=== PATIENT | male | born 1960 | race Caucasian/White ===

== ENCOUNTER → 2017-04-29 | Outpatient (CLI) | payer BC | LOC: BMCIMAGING 09:17 | PROVIDERS: ATTEND Physician Assistant | DX: M25.561 Pain in right knee (principal) ==

== ENCOUNTER 2017-05-12 15:45 | Observation (INO) | payer BC ==
[2017-05-12] MEDS ORDERED: ceFAZolin 2 GM/DEXTROSE 100 ML IV ONE ×2 (15:49→20:14)
[2017-05-12] MEDS ORDERED: TDAP ADULT 0.5 ML INJ (BOOSTRIX) IM ONE (15:59)
--- NOTE | 2017-05-12 16:02 | EDPHY ---
H & P Constitutional: Initial Vital Signs Heart Rate 67 05/12/17 16:00 Respiratory Rate 20 05/12/17 16:00 Blood Pressure 150/94 H 05/12/17 16:00 O2 Sat (%) 99 05/12/17 16:00 O2 Delivery Mode Nasal Cannula O2 (L/minute) 4 Allergies/Adverse Reactions: No Known Allergies Allergy (Verified 05/12/17 16:04) Home Medications: Medication Instructions Recorded Aspirin [Aspirin 325 mg (OTC)] 325 mg PO DAILY 04/18/13 Atorvastatin Calcium [Lipitor] 40 mg PO HS 04/18/13 Pharmacy Completed 04/18/13 04/18/13 Medical Decision Making - Diagnostics Imaging Results: Imaging Impressions Hand X-Ray 05/12/17 15:49 Impression: 1. Severely comminuted intraarticular open fracture through the base of the distal phalanx of the index finger. 2. Moderately comminuted open fracture of the head of the middle phalanx of the 4th finger, with probable intraarticular extension. Imaging: Discussed imaging studies w/ call centre supervisor Radiologist, I viewed and interpreted images myself ED Course/Re-evaluation: CHIEF COMPLAINT: Left finger amputations HISTORY OF PRESENT ILLNESS: The patient is a 57 y/o male who walked into the ED with his friend complaining of multiple left finger injuries secondary to accidentally cutting himself with a bandsaw 10 minutes prior to arrival. He did not lose consciousness and denies any other injuries. He arrived in a makeshift belt tourniquet that was replaced with a CAT upon arrival. He is not anticoagulated. REVIEW OF SYSTEMS: A 10 point review of systems was performed and is negative with the exception of the elements mentioned in the history of present illness. PHYSICAL EXAM: HR, BP, O2 Sat, RR. Temp noted General Appearance: Alert, talking appropriately, appears in pain. Head: Atraumatic without scalp tenderness or obvious injury Eyes: Pupils equal, round, reactive to light and accommodation, EOMI, no trauma , no injection. Ears: Clear bilaterally, no perforation, no hemotympanum Nose: Atraumatic, no rhinorrhea, no septal hematoma Neck: All NEXUS criteria are negative. The cervical spine is non-tender and there is no pain or neurologic deficits with active range of motion. Supple, no trauma, trachea midline. Cardiovascular: Heart is regular rate and rhythm without murmur. Left radial pulse intact. Poor capillary refill in distal left index and left ring finger. Otherwise good capillary refill all extremities. Chest: Atraumatic, equal bilateral breath sounds. Good oxygen saturations with normal minute ventilation. Chest is non-tender to palpation. Gastrointestinal: Soft, non-tender, non-distended. No rebound, guarding, or peritoneal signs. There is no evidence of external or internal trauma. Back: There is no thoracic or lumbar spine or paraspinal tenderness. Atraumatic. Left hand: Near complete amputation of index finger at DIP, laceration along dorsal aspect of middle finger, ring finger amputation just distal to PIP with small amount of soft tissue still attached, two <1cm lacerations to distal 5th finger, small laceration to distal tip of thumb with intact nail Extremities: Otherwise all extremities are non-tender to palpation without obvious deformity. There is full active range of motion of the joints. Neurological: The patient has normal DTRs and non-focal Cranial nerves, motor, sensory, and cerebellar exam Skin: No mejia or abrasions. PAST MEDICAL HISTORY: Denies PAST SURGICAL HISTORY: Denies SOCIAL HISTORY: Friend and at bedside. DIAGNOSTICS/PROCEDURES/CRITICAL CARE TIME: Left Hand x-ray: 1. Severely comminuted intraarticular open fracture through the base of the distal phalanx of the index finger. 2. Moderately comminuted open fracture of the head of the middle phalanx of the 4th finger, with probable intraarticular extension. DIFFERENTIAL DIAGNOSIS: The differential diagnosis for the patient's trauma included but was not limited to full and partial finger amputations, tendon and muscle injury, vascular injury, nerve injury, hemorrhage. MEDICAL DECISION MAKING: This is a healthy 57 y/o male who presents with significant injuries to his distal left ring finger and index finger from a bandsaw accident 10 minutes prior to arrival in the ED. His friend immediately placed a makeshift belt tourniquet and brought him to the ED POV. Immediate plan for hemorrhage control , pain management, imaging, and hand surgeon consult. 1545: Tourniquet placed by ED staff proximal to makeshift tourniquet. Sterile saline-soaked bandages applied to lacerations, ring cut off. 1gm IV Ancef ordered for open fracture. PA will apply digital blocks to affected fingers. 1552: Pressure cuff placed and tourniquet removed. Tetanus vaccination ordered. 1600: Cuff deflated without further hemorrhage. Digital block performed by [facility] Block to left index, left middle, and left ring fingers. 1609: Consulted with Dr. Noyola, hand surgeon. He will review films and plans to take patient to surgery. 1615: Reassessed patient and discussed plan. His pain is well controlled with local anesthesia. Patient's last PO intake was food at 11:30 and coffee at 13: 00 today. 1651: Consulted with Dr. Noyola in the ED. He will assess the patient in the trauma bay. - Data Points Medications Given: Discontinued Medications Diphtheria/Tetanus/Acell Pertussis (Boostrix) 0.5 ml IM .ONCE ONE Stop: 05/12/17 16:00 Last Admin: 05/12/17 16:05 Dose: 0.5 ml Cefazolin Sodium/Dextrose (Ancef 2 Gm (Premix)) 100 mls @ 200 mls/hr IV EDNOW ONE PRN Reason: Protocol Stop: 05/12/17 16:18 Last Admin: 05/12/17 15:55 Dose: 100 mls Departure - Departure Disposition: [facility] Inpatient Acute Clinical Impression: Open fracture of phalanx of finger of left hand Qualifiers: Encounter type: initial encounter Finger: ring finger Phalanx: middle Fracture alignment: displaced Qualified Code(s): S62.625B - Displaced fracture of middle phalanx of left ring finger, initial encounter for open fracture Finger laceration involving tendon Qualifiers: Encounter type: initial encounter Qualified Code(s): S61.219A - Laceration without foreign body of unspecified finger without damage to nail, initial encounter; S66.929A - Laceration of unspecified muscle, fascia and tendon at wrist and hand level, unspecified hand, initial encounter; S66.929A - Laceration of unspecified muscle, fascia and tendon at wrist and hand level, unspecified hand, initial encounter Laceration of multiple sites of left hand and fingers Qualifiers: Encounter type: initial encounter Qualified Code(s): S61.412A - Laceration without foreign body of left hand, initial encounter; S61.219A - Laceration without foreign body of unspecified finger without damage to nail, initial encounter; S61.219A - Laceration without foreign body of unspecified finger without damage to nail, initial encounter Condition: Good Referrals: Amari Kearney MD [Primary Care Provider] - As per Instructions Report Scribed for: Wm Ortega Report Scribed by: Shawna Jovel Date of Report: 05/12/17 Time of Report: 16:03
[2017-05-12] MEDS ORDERED: BUPIVACAINE 0.5% 30 ML SDV ONE (19:13)
[2017-05-12] MEDS ORDERED: BACITRACIN 50,000 UNITS/10 ML SYR IRR ONE ×2 (19:14→21:06)
--- NOTE | 2017-05-12 19:28 | PDCONSULT ---
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 Ortega CC: L hand tablesaw injury HPI: About 30 min prior to presentation the patient was using a tablesaw at home. The saw kicked and pulled his hand in, lacerating his digits. He sustained injuries to the LIF, LLF, and LRF and lacerations to the thumb and LSF. The patient was initially seen and evaluated by the ER staff. Xrays were taken. The patient was given a digital block for pain ctrl. He denies a h/o tobacco smoking. PMH: a-fib, not on medication SHx: denies tobacco smoking, no drugs of abuse O: Vitals: see chart PE: Gen: NAD CV: 2+ radial pulses Pulm: chest rise equal and unlabored B/L L hand: L thumb -superficial abrasion over volar pulp -intact FPL/EPL -SILT -well perfused LIF -4cm oblique lac over dorsal aspect of digit at level of nail matrix extending into radial midaxial line -<2s cap refill fingertip -unable to assess sensation -unable to assess flexor tendon due to injury LLF -3cm oblique lac over PIPJ -able to maintain extension -<2s cap refill fingertip -unable to assess sensation -intact FDS/FDP LRF -3cm semicircular laceration along the ulnar aspect of digit with a radial skin bridge at level of P2 neck -flexor and extensor tendons likely lacerated by visual inspection -<2s cap refill fingertip -unable to assess sensation due to block LSF -multiple short lacerations along volar pulp, 1cm total -intact FDS/FDP -SILT, but subjective numbness compared to CL -digit well perfused Xray of the L hand reviewed, images show a comminuted transverse fx through the LRF P2 neck and a very comminuted fx of the LIF P1 base A/P: L hand saw injuries with likely injury to the LRF flexor and extensor tendon, ulnar NV bundle, P2 neck; LLF extensor tendon with possible violation of PIP joint; LIF nailbed, P1 base, possible flexor and extensor tendon; as well as lacerations to the thumb and SF. -Discussed risks and benefits of operative mgmt at length with the pt. We discussed possible complications of his injury, which include numbness, stiffness, infection, loss of function, and need for further surgeries in the future -He agreed to proceed with the surgery, plan urgent repair of above structures -About 20 min spent with the patient in the ER, of which over 50% was spent consulting about the diagnosis, prognosis, and treatment plan
[2017-05-12] MEDS ORDERED: LR 1,000 ML IV ONE (19:55)
[2017-05-12] MEDS ORDERED: fentaNYL 100 MCG/2 ML INJ ONE ×2 (20:09→20:51)
[2017-05-12] MEDS ORDERED: PROPOFOL 200 MG/20 ML VIAL ONE (20:10)
[2017-05-12] MEDS ORDERED: ROCURONIUM 100 MG/10 ML VIAL ONE (20:10)
[2017-05-12] MEDS ORDERED: LIDOCAINE 2% 5 ML SDV ONE (20:12)
[2017-05-12] MEDS ORDERED: SUGAMMADEX SODIUM 200 MG/2 ML VIAL IVP ONE (20:15)
[2017-05-12] MEDS ORDERED: DEXAMETHASONE 4 MG/ML VIAL ONE (20:15)
[2017-05-12] MEDS ORDERED: MIDAZOLAM 2 MG/2 ML VIAL ONE (20:16)
[2017-05-12] MEDS ORDERED: ONDANSETRON 4 MG/2 ML VIAL ONE (20:16)
[2017-05-12] MEDS ORDERED: MIDAZOLAM 2 MG/2 ML VIAL IVP ONE (20:17)
[2017-05-12] MEDS ORDERED: CEFAZOLIN 2 GM/DEXTROSE/100 ML BAG IV ONE (20:17)
--- NOTE | 2017-05-12 20:19 | PDANEPAE ---
ANE History of Present Illness left hand table saw injury ANE Past Medical History - Cardiovascular History Hx Hypertension: No Hx Arrhythmias: Yes Hx Chest Pain: No Hx Coronary Artery / Peripheral Vascular Disease: No Hx CHF / Valvular Disease: No Hx Palpitations: Yes Cardiovascular History Comment: rare paroxysmal a.fib, no need for rate or rhythm control - Pulmonary History Hx COPD: No Hx Asthma/Reactive Airway Disease: No Hx Recent Upper Respiratory Infection: No Hx Oxygen in Use at Home: No Hx Sleep Apnea: No - Neurologic History Hx Cerebrovascular Accident: No Hx Seizures: No Hx Dementia: No - Endocrine History Hx Diabetes: No Hypothyroid: No Hyperthyroid: No Obesity: no ANE Review of Systems Review of systems is: negative Review of Systems: - Exercise capacity Exercise capacity: >=4 METS ANE Patient History - Allergies Allergies/Adverse Reactions: No Known Allergies Allergy (Verified 05/12/17 16:04) - Home Medications Home medications: home medication list seen and reviewed Home Medications: Aspirin [Aspirin 81mg (*)] 81 mg PO DAILY 05/12/17 [Last Taken 05/11/17] Ezetimibe [Zetia 10 MG (*)] 10 mg PO DAILY18 05/12/17 [Last Taken 05/11/17 18:00 ] Rosuvastatin Calcium [Crestor 40mg (*)] 40 mg PO DAILY18 05/12/17 [Last Taken ] - NPO status NPO Since - Liquids (Date): 05/12/17 NPO Since - Liquids (Time): 13:00 NPO Since - Solids (Date): 05/12/17 NPO Since - Solids (Time): 12:00 - Anes Hx Anes Hx: post operative nausea - Smoking Hx Smoking Status: Never smoked ANE Labs/Vital Signs - Vital Signs Blood Pressure: 141/77 Heart Rate: 53 Respiratory Rate: 15 O2 Sat (%): 94 Height: 180.34 cm Weight: 86.183 kg ANE Physical Exam - Airway Neck exam: FROM Mallampati Score: Class 2 Mouth exam: normal dental/mouth exam - Pulmonary Pulmonary: no respiratory distress - Cardiovascular Cardiovascular: regular rate and rhythym - ASA Status ASA Status: II ANE Anesthesia Plan Anesthesia Plan: general endotracheal anesthesia
[2017-05-12] MEDS ORDERED: ACETAMINOPHEN 500 MG TAB PO PRN (23:07)
[2017-05-12] MEDS ORDERED: ONDANSETRON 4 MG/2 ML VIAL IVP PRN (23:07)
[2017-05-12] MEDS ORDERED: HYDROmorphONE/DILAUDID 1 MG/ML INJ IVP PRN (23:07)
[2017-05-12] MEDS ORDERED: fentaNYL 100 MCG/2 ML INJ IVP PRN (23:07)
[2017-05-12] MEDS ORDERED: NALOXONE HCL 0.4 MG/ML INJ IVP PRN (23:07)
[2017-05-12] MEDS ORDERED: METOCLOPRAMIDE 10 MG/2 ML VIAL IVP PRN (23:07)
[2017-05-12] MEDS ORDERED: LR 500 ML IV PRN (23:07)
[2017-05-12] MEDS ORDERED: PROMETHAZINE HCL 25 MG/ML INJ IVP PRN (23:07)
[2017-05-12] MEDS ORDERED: OXYCODONE/APAP 5/325 TAB PO PRN (23:07)
[2017-05-12] MEDS ORDERED: ALBUTEROL 3 ML DEYVIAL IH PRN (23:07)
[2017-05-12] MEDS ORDERED: ROPIVACAINE HCL 150 MG/30 ML INJ ONE (23:45)
[2017-05-13] MEDS ORDERED: HYDROGEN PEROXIDE 236 ML BOTTLE TP ONE (00:05)
--- NOTE | 2017-05-13 01:02 | POSTANESTH ---
Post Anesthetic Evaluation Cardiovascular Status: Normal, Stable Respiratory Status: Normal, Stable Level of Consciousness/Mental Status: Can Participate in Eval Pain Control: Adequate, Prn Tx Ordered Nausea/Vomiting Control: Adequate, Prn Tx Ordered Complications Possibly Related to Anesthesia: None Noted
[2017-05-13] MEDS ORDERED: ONDANSETRON 4 MG/2 ML VIAL ONE (01:03)
[2017-05-13] MEDS ORDERED: PROMETHAZINE HCL 25 MG/ML INJ ONE (01:14)
[2017-05-13] MEDS ORDERED: ONDANSETRON DISINTEGRATING 4 MG TAB PO PRN (02:00)
[2017-05-13] MEDS ORDERED: ONDANSETRON 4 MG/2 ML VIAL IVP PRN (02:00)
[2017-05-13] MEDS ORDERED: HYDROCODONE/APAP 5/325 TAB PO PRN (02:00)
[2017-05-13] MEDS ORDERED: LR 1,000 ML IV SCH (02:00)
[2017-05-13] MEDS ORDERED: ACETAMINOPHEN 325 MG TAB PO PRN (02:00)
[2017-05-13] MEDS: ceFAZolin 2 GM/DEXTROSE 100 ML IV SCH ×2 (04:58→12:40)
[2017-05-13 08:03] VITALS: TEMP 98.3
[2017-05-13] MEDS ORDERED: ASPIRIN 81 MG CHEWABLE TAB PO SCH (09:00)
[2017-05-13 11:52] VITALS: BP 112/67; PULSE 57; RESP 16; O2SAT 95
[2017-05-13] MEDS ORDERED: FLU VACC QS 2017-18 (3YR+)/PF 0.5 ML SYR (FLUARIX QUAD) IM ONE (14:17)
--- NOTE | 2017-05-13 14:35 | GOP ---
[f rep st] OPERATIVE REPORT DATE OF OPERATION: 05/12/2017 SURGEON: Nas Noyola MD ANESTHESIA: General. PREOPERATIVE DIAGNOSIS: Left hand saw injury to left small finger, left ring finger, left long finge r, and left index finger. POSTOPERATIVE DIAGNOSIS: 1. Left small finger: A 1 cm laceration. 2. Left ring finger:. a. A 4 cm near circumferential laceration along ulnar aspect of the digit with about 1 cm radial ski n bridge. b. Extensor tendon laceration, zone 2. c. Flexor tendon laceration, zone 1. d. Laceration of the ulnar digital nerve. e. An open middle phalanx neck fracture, transverse. 3. Left long finger:. a. A 3 cm oblique laceration over the proximal interphalangeal joint. b. An incomplete cortical open fracture of the middle phalanx. c. Extensor tendon laceration, 75%, in zone 3. d. A traumatic proximal germinal phalangeal joint arthrotomy. 4. Left index finger:. a. An open fracture of the distal phalanx base. b. A 4 cm laceration. c. A nail bed injury. PROCEDURE PERFORMED: 1. Left small finger: A 1 cm laceration repair. 2. Left ring finger:. a. A 4 cm laceration repair. b. Irrigation and debridement of skin, subcutaneous tissue, tendon, and bone at the site of an open middle phalanx fracture. c. Open treatment of middle phalanx fracture with K-wires. d. Repair of flexor tendon in zone 1. e. Repair of extensor tendon in zone 2. f. Suture of the ulnar digital nerve with 9-0 nylon suture. 3. Left long finger:. a. A 3 cm laceration repair. b. Irrigation and debridement of skin, subcutaneous tissue, tendon, and bone at the site of an incom plete middle phalanx fracture. c. Repair of 75% extensor tendon laceration in zone 3. d. Irrigation of a traumatic proximal interphalangeal arthrotomy. 4. Left index finger:. a. A 4 cm laceration repair. b. Irrigation and debridement of skin, subcutaneous tissue, and bone at the site of an open distal p halanx fracture. c. Open treatment of middle phalanx fracture with K-wires. d. Repair of nail bed. FINDINGS: ESTIMATED BLOOD LOSS: 10 cc. INDICATIONS: This is a 57-year-old male who presented to the emergency department about 30 minutes a fter he was injured with a table saw. He is right-hand dominant and he was using a table saw when th e saw kicked and pulled his hand into the saw. He sustained an injury to the above-mentioned fingers . The working diagnoses were lacerations to the above-mentioned fingers, as well as likely injury to the left ring finger extensor/flexor tendons, and the ulnar neurovascular bundle with an x-ray that showed a transverse P2 neck fracture of the left long finger, had a laceration over the dorsum of adry t digit, nothing was seen on x-ray; and the left index finger had a complex laceration that was about 4 cm extending through the nail matrix around the radial aspect of the digit which likely indicated a nail bed injury, an x-ray showed a complex and comminuted distal phalanx fracture at the base. On examination in the ER, the patient had already been blocked by the ER team and sensation could not be assessed. However, in the small finger and the thumb, he had intact tendon function. All digits were perfusing well, with less than 2 seconds of capillary refill. Due to the nature of the open in juries, it was then decided to take the patient urgently to the operating room. We discussed the risks and benefits of operative versus nonoperative treatment with the patient at [facility], and he wished to proceed with the surgery. We also stressed the possible complications of his injury in the future. He may develop stiffness, loss of function, swelling, numbness; and he may nee d secondary surgeries due to the complex nature of his injuries and the uncertainty of the healing co urse. DESCRIPTION OF PROCEDURE: Patient was seen in preoperative holding area. Consents were performed. The patient was then taken to the operative suite. Great care was taken to transfer the patient from the [facility] to the operating room table. Care was taken to pad all bony prominences prior to inducti on of anesthesia. Anesthesia was induced by the anesthesia team. A timeout was called, including yates rgical and anesthesia teams, confirming the surgical site and procedure to be performed. Of note, 4 gm of Ancef was redosed prior to his surgery. He had also received an initial Ancef in the ER as wel l; this was his second dose. At this point, after timeout was called, the left upper extremity was p repped and draped in the usual sterile fashion. Esmarch was used to exsanguinate the left upper extr emity. A tourniquet was inflated to 250 mmHg. We first began the procedure by exploring the injurie s, and the above-mentioned findings and the postoperative diagnoses were seen. At this point, we began the irrigation and debridement portion of the procedure. We irrigated all wo unds and then debrided all the fractures down to bone sharply with a curet. Any contaminated appeari ng skin or tendon was then removed sharply. After the irrigation/debridement portion of the procedur e to all open fractures that were described, we first turned our attention to the index finger. The injury was examined. He had a complex injury to the distal phalanx base, as well as through the nail bed. The saw appears to have gone through part of his nail bed, splintering the base of the distal phalanx. There were several small articular pieces. Some were missing. He also had some injury to the middle phalanx head at that joint. At this point, we had described a primary fusion with him, ho wever there was not enough bone stock to attempt this so a 0.035 K-wire was used to hold together [place] e of the articular pieces, and another 0.035 K-wire was then used to secure the most distal piece to the base across the joint. This provided sufficient fixation. Then the digit was shortened. He had some bone loss and the tip had actually shortened enough to provide coverage over the nail bed injur y. The nail was removed. Part of the germinal matrix appears to have been intact. The decision was made to leave it intact as he may possibly have a nail grow, and the chromic suture was then used to repair the nail fold down to the nail bed. The left long finger was then addressed. The traumatic lacerations were extended to visualize the ex tensor tendon. What was not seen on x-ray was a cortical defect which was an incomplete fracture of the dorsal portion of the middle phalanx. This appeared stable, not requiring any fixation or mobili zation; however, it was debrided in a standard fashion with a curet. At this point, he had about a 7 5% laceration of extensor tendon at zone 3, just distal to the PIP joint. The PIP joint had been clair lated, and he had thus had a traumatic arthrotomy which was irrigated copiously with sterile saline. After doing this, the extensor tendon was repaired in [id number] fashion with a Mersilene sutur e. Part of the central slip appears to have been involved as well. However, a portion had remained, and thus a portion of the central slip was repaired with the extensor tendon. The ring finger was then addressed, and irrigation/debridement portions performed as described above. Then turned our attention to the fixation of the bone. This was done with K-wires, using 0.045 and 0.035 K-wire to secure the articulate piece down to the P2 neck. After this was done, I was happy w ith the position of the K-wires. The traumatic wound, as described, was extended to visualize the ex tensor tendon, and the flexor tendon as well as the ulnar neurovascular bundle. The ulnar digit nerv e was identified. The flexor tendon was identified. We first turned our attention to repairing the extensor tendon, which was repaired with [id number] Mersilene suture. Turned our attention then to the flexor tendon. A narrow mosquito was used to try to attempt to pull out the flexor digitorum profundus, however had retracted about to the level of his proximal phalanx base. Thus, that incisi on was extended down volarly as a Raffi, and the flexor tendon was then identified and its sheath pu lled into the flexor tendon sheath and out the traumatic wound to be able to repair. It was held in place with a hypodermic needle. A 4-0 FiberWire suture was then used to repair the tendon in a 4-cor ner, 4-stranded, cruciate type fashion. A 6-0 Prolene was then used as an epitendinous suture. This provided a nice taut repair. At this point, we then turned our attention to repairing the ulnar dig ital nerve. As noted, on prior examination in the ER, the patient had good perfusion of that digit w hich was being perfused by the radial neurovascular bundle which was visualized and delicately protec pedro throughout the case. As far as the ulnar digit nerve, it was repaired with a 9-0 nylon suture in epineural fashion. After this was done, tourniquet was let down. The small finger, index, thumb, and long finger were w ell perfused. The ring finger appeared pale initially, likely due to arterial spasm. This responded well to bathing with warm saline and then good perfusion returned to that digit, with good color and brisk capillary refill. At this point, the K-wires were bent and cut short. He was irrigated one more time, and then the lac erations and incisions were closed. The lacerations, as described above, were closed with 4-0 chromi c suture, and all extensions of injuries and incisions were closed in the same manner. At this point , a sterile dressing was applied. The patient placed in a dorsal block splint. He was awakened from general anesthesia in stable condition, and taken to the PACU in stable condition. POSTOPERATIVE COMPLICATIONS: None. POSTOPERATIVE CONDITION: Stable. POSTOPERATIVE PLAN: I had a prolonged discussion with the patient and his about things to watch out for in the digits, including any change in perfusion, any signs of infection. The patient was i nstructed not to drink any caffeinated beverages. He is to continue his aspirin as he has been barry gavin. Prescription was given for a 5-day course of antibiotic. Pain medications were given as well. Anselmo bowie will be followed closely in the office. We will also initiate him with hand therapy soon and, dionne phelps, postoperatively had a discussion with the patient about the guarded diagnosis of his injuries to t hose digits. /[id number]/MODL
--- NOTE | 2017-05-13 15:46 | ASDISCHSUM ---
Discharge Information Plan Status:Home with No Needs Medically Cleared to Leave: Discharge Date:05/13/2017 02:59 PM CM D/C Disposition:Home, Routine, Self-Care ADT D/C Disposition:Home, Routine, Self-Care Projected Discharge Date:05/13/2017 02:59 PM Transportation at D/C: Discharge Delay Reason: Follow-Up Date:05/13/2017 02:59 PM Discharge Slot: Final Diagnosis: Placement Information Patient Contact Information Contact Name:VANDANA Relationship: Address:[address] [place] [address] Work Phone: City:[place] Alternate Phone: [facility]/Zip Code:[place] [address] Email: Financial Information Financial Class:HMO and PPO Plans Primary Plan Desc: OUT OF STATE PPO Primary Plan Number:[id number] Secondary Plan Desc: Secondary Plan Number: Assessment Information Intervention Information
== END 2017-05-13 14:59 | disposition home or self-care (01) ==
LOC: F3N 05-13 01:58
PROVIDERS: ADMIT Orthopaedic Surgery Hand Surgery; ATTEND Orthopaedic Surgery Hand Surgery
PROC: 01Q50ZZ Repair Median Nerve, Open Approach (ICD-10-PCS; principal; 2017-05-12 20:00)
PROC: 0HQQXZZ Repair Finger Nail, External Approach (ICD-10-PCS; principal; 2017-05-12 20:00)
PROC: 0HQGXZZ Repair Left Hand Skin, External Approach (ICD-10-PCS; principal; 2017-05-12 20:00)
PROC: 0PSV0ZZ Reposition Left Finger Phalanx, Open Approach (ICD-10-PCS; principal; 2017-05-12 20:00)
PROC: 0LQ80ZZ Repair Left Hand Tendon, Open Approach (ICD-10-PCS; principal; 2017-05-12 20:00)
PROC: 0PSV04Z Reposition Left Finger Phalanx with Internal Fixation Device, Open Approach (ICD-10-PCS; principal; 2017-05-12 20:00)
DX: S62.625B Displaced fracture of middle phalanx of left ring finger, initial encounter for open fracture (principal); S64.495A Injury of digital nerve of left ring finger, initial encounter; S66.125A Laceration of flexor muscle, fascia and tendon of left ring finger at wrist and hand level, initial encounter; S66.325A Laceration of extensor muscle, fascia and tendon of left ring finger at wrist and hand level, initial encounter; S62.623B Displaced fracture of middle phalanx of left middle finger, initial encounter for open fracture; S66.322A Laceration of extensor muscle, fascia and tendon of right middle finger at wrist and hand level, initial encounter; S62.631B Displaced fracture of distal phalanx of left index finger, initial encounter for open fracture; S66.121A Laceration of flexor muscle, fascia and tendon of left index finger at wrist and hand level, initial encounter; S61.012A Laceration without foreign body of left thumb without damage to nail, initial encounter; S61.217A Laceration without foreign body of left little finger without damage to nail, initial encounter; W31.2XXA Contact with powered woodworking and forming machines, initial encounter; Y92.009 Unspecified place in unspecified non-institutional (private) residence as the place of occurrence of the external cause; Y93.D9 Activity, other involving arts and handcrafts; Z23 Encounter for immunization
CPT/HCPCS: 11760; 12001; 26350; 26418; 26735; 26765; 64831; 73130; 90471; G0378; C1713; G0008; J0690; J1100; J2250; J2405; J2550; J2704; J2795; J3010

== ENCOUNTER → 2017-05-26 | Outpatient (CLI) | payer BC | LOC: BMCIMAGING 14:07 | PROVIDERS: ATTEND Orthopaedic Surgery Hand Surgery | DX: S62.631D Displaced fracture of distal phalanx of left index finger, subsequent encounter for fracture with routine healing (principal); S62.635D Displaced fracture of distal phalanx of left ring finger, subsequent encounter for fracture with routine healing ==

== ENCOUNTER → 2017-06-09 | Outpatient (CLI) | payer BC | LOC: BMCIMAGING 12:12 | PROVIDERS: ATTEND Orthopaedic Surgery Hand Surgery | DX: S62.631D Displaced fracture of distal phalanx of left index finger, subsequent encounter for fracture with routine healing (principal); S62.635D Displaced fracture of distal phalanx of left ring finger, subsequent encounter for fracture with routine healing ==

== ENCOUNTER → 2017-06-23 | Outpatient (CLI) | payer BC | LOC: BMCIMAGING 10:06 | PROVIDERS: ATTEND Orthopaedic Surgery Hand Surgery | DX: S62.635A Displaced fracture of distal phalanx of left ring finger, initial encounter for closed fracture (principal); S62.625A Displaced fracture of middle phalanx of left ring finger, initial encounter for closed fracture ==

== ENCOUNTER → 2017-07-14 | Outpatient (CLI) | payer BC | LOC: BMCIMAGING 12:56 | PROVIDERS: ATTEND Orthopaedic Surgery Hand Surgery | DX: S62.625D Displaced fracture of middle phalanx of left ring finger, subsequent encounter for fracture with routine healing (principal); M79.89 Other specified soft tissue disorders ==

== ENCOUNTER → 2017-09-01 | Outpatient (CLI) | payer BC | LOC: BMCIMAGING 12:40 | PROVIDERS: ATTEND Orthopaedic Surgery Hand Surgery | DX: Z47.89 Encounter for other orthopedic aftercare (principal); S62.625D Displaced fracture of middle phalanx of left ring finger, subsequent encounter for fracture with routine healing; S62.635D Displaced fracture of distal phalanx of left ring finger, subsequent encounter for fracture with routine healing ==

== ENCOUNTER → 2017-09-24 | Outpatient (CLI) | payer BC | LOC: BMCIMAGING 15:20 | PROVIDERS: ATTEND Podiatrist Foot & Ankle Surgery | DX: M19.072 Primary osteoarthritis, left ankle and foot (principal); M19.071 Primary osteoarthritis, right ankle and foot; M21.611 Bunion of right foot; M20.11 Hallux valgus (acquired), right foot ==

== ENCOUNTER → 2017-10-01 | Outpatient (CLI) | payer BC | LOC: BMCIMAGING 13:21 | PROVIDERS: ATTEND Orthopaedic Surgery Hand Surgery | DX: S62.631K Displaced fracture of distal phalanx of left index finger, subsequent encounter for fracture with nonunion (principal); S62.613 Displaced fracture of proximal phalanx of left middle finger ==

== ENCOUNTER → 2018-03-24 | Outpatient (CLI) | payer BC | DX: S62.625D Displaced fracture of middle phalanx of left ring finger, subsequent encounter for fracture with routine healing (principal); S62.631K Displaced fracture of distal phalanx of left index finger, subsequent encounter for fracture with nonunion ==